=== PATIENT | female | born 1955 | race Caucasian/White ===

== ENCOUNTER 2016-09-18 15:52 | Emergency (ER) | payer SELFPAY ==
[~2016-09-18] VITALS: Ht 157.5 cm; Wt 96.5 kg
[2016-09-18 15:55] VITALS: Ht 157.5 cm; Wt 96.5 kg
[2016-09-18] MEDS ORDERED: FLUORESCEIN STRIP LEFT EYE ONE (16:30)
[2016-09-18] MEDS ORDERED: TETRACAINE 0.5% 4 ML OPH LEFT EYE ONE (16:30)
[2016-09-18] MEDS ORDERED: TBR.3OO LEFT EYE (16:51)
--- NOTE | 2016-09-18 17:02 | ERD ---
ER Documentation Chief Complaint Date/Time DATE: 09/18/16 TIME: 16:57 Chief Complaint BELIEVES SHE HAS A CONTACT LENSE STUCK IN HER EYE HPI This is a 65-year-old female presents to the ER leading she got a contact lens stuck in her left eye. Patient states that she's been feeling pain to her eye with redness. Patient then contacts for a republican yesterday. Patient states she took out lenses at night, however could not find the contact in her left eye. Patient denies any vision loss, blurry vision, floaters, halos around lights, flashes of light, discharge from the eye. She denies any headache. She denies any nausea or vomiting. She denies any trauma to the eye. ROS 12 point review of systems was done, all negative except per HPI. Medications Home Meds Active Scripts Tobramycin Sulfate* (Tobrex*) 3.5 Gm Oint..gm., 1 APPLIC LEFT EYE TID for 7 Days , EA Prov:SHI VIDAL Melo 09/18/16 Allergies Allergies: Coded Allergies: No Known Allergy (Unverified , 09/18/16) PMhx/Soc Medical and Surgical Hx: pt denies Medical Hx, pt denies Surgical Hx Hx Alcohol Use: No Hx Substance Use: No Hx Tobacco Use: No Smoking Status: Never smoker Physical Exam Vitals Vital Signs Date Time Temp Pulse Resp B/P Pulse Ox O2 Delivery O2 Flow Rate FiO2 09/18/16 15:55 98.6 85 18 179/79 96 Physical Exam GENERAL: The patient is well developed and appropriate for usual state of health , in no apparent distress. HEENT: Atraumatic.left eye: Conjunctiva is injected, no discharge is seen. Extraocular movements are intact and nonpainful. No proptosis. No evidence of hypopyon or hematomas. no surrounding erythema. CHEST: Clear to auscultation bilaterally. There are no rales, wheezes or rhonchi. HEART: Regular rate and rhythm. No murmurs, clicks, rubs or gallops. NEURO: Alert and oriented. SKIN: The skin is warm and dry. Results 24 hrs Current Medications Medications (Trade) Dose Ordered Sig/Farooq Route PRN Reason Start Time Stop Time Status Last Admin Dose Admin Tetracaine HCl (Tetracaine 0.5% Steri-Unit Swathi) 1 drop ONCE ONCE LEFT EYE 09/18/16 16:30 09/18/16 16:31 DC Fluorescein Sodium ([id number]-[id number]) 1 strip ONCE ONCE LEFT EYE 09/18/16 16:30 09/18/16 16:31 DC Procedures/MDM Subconjunctival hemorrhage, bacterial conjunctivitis, viral conjunctivitis, allergic conjunctivitis,orbital cellulitis, hyphema, corneal abrasion, keratitis , uveitis, angle-closure glaucoma, retinal detachment, ruptured globe, retrobulbar hematoma. This is a 61-year-old female presents to the ER stating she believes she has a contact stuck in her left eye. Upon examination there is no evidence of contact lens. Patient's eye was examined with fluorescing stain, there is a small corneal abrasion was found. Suspicion for retinal detachment, retrobulbar hematoma,, acute angle-closure glaucoma, uveitis, keratitis is low. Patient is afebrile and well-appearing. She'll be sent home with tobramycin. She is to follow up with [facility] as soon as possible. She has blood pressure is elevated to 179/79. Patient is not having hypertensive emergency or urgency. She is to follow-up with her primary care doctor as soon as possible for her high blood pressure reading. My Medical decision making was shared with the patient she understands and agrees with plan. Departure Diagnosis: Primary Impression: Corneal abrasion due to contact lens Condition: Stable Patient Instructions: Corneal Injury, Contact Lens Referrals: [facility] Hours: Mon - Fri 9:00 AM - 5:00 PM Additional Instructions: Call your primary care doctor TOMORROW for an appointment during the next 1-2 days.See the doctor sooner or return here if your condition worsens before your appointment time. PLEASE SEE AN INSURANCE EXECUTIVE-> OPTHALMOLOGIST SOON POSSIBLE FOR F/U. SHI VIDAL September 18, 2016 17:02
== END 2016-09-18 17:00 | disposition home or self-care (01) ==
LOC: FTE 15:52
DX: H18.822 Corneal disorder due to contact lens, left eye (principal); X58.XXXA Exposure to other specified factors, initial encounter; Y92.9 Unspecified place or not applicable
CPT/HCPCS: 99283